=== PATIENT | female | born 1965 | race Caucasian/White ===

== ENCOUNTER → 2017-07-17 | Outpatient (CLI) | payer OTHER | END | disposition home or self-care (01) | LOC: CFH 14:09 | PROVIDERS: ATTEND Internal Medicine | DX: Z12.31 Encounter for screening mammogram for malignant neoplasm of breast (principal) | CPT/HCPCS: G0202 ==

== ENCOUNTER 2018-09-17 10:27 | Emergency (ER) | payer OTHER ==
[~2018-09-17] VITALS: Ht 185.4 cm; Wt 84.0 kg
[2018-09-17] MEDS ORDERED: PLEASE ENTER ALLERGIES MC SCH (11:00)
[2018-09-17] MEDS ORDERED: HYDROmorphone 2 MG/ML, 1ML IM ONE (11:00)
[2018-09-17] MEDS ORDERED: ONDANSETRON ODT 4 MG PO ONE (11:00)
[2018-09-17] MEDS ORDERED: HYDROmorphone 2 MG/ML, 1ML ONE (11:12)
[2018-09-17] MEDS ORDERED: ONDANSETRON 2MG/ML, 2ML ONE (11:12)
[2018-09-17 11:24] LABS: ALBUMIN 3.6 g/dL (3.4-5.0); ANION GAP 8 mmol/L (5-15); CALCIUM 8.1 mg/dL (8.5-10.1); CHLORIDE 109 mmol/L (98-107); CREATININE 0.63 mg/dL (0.55-1.02)
[2018-09-17 11:26] LABS: BASOPHILS # (AUTO) 0.01 x10^3/uL (0-0.1); BASOPHILS % (AUTO) 0 % (0-1); EOSINOPHILS # (AUTO) 0.15 x10^3/uL (0-0.4); EOSINOPHILS % (AUTO) 3 % (1-7); LYMPHOCYTES % (AUTO) 26 % (22-44); MD NO; MEAN CORPUSCULAR HEMOGLOBIN 31.6 pg (27.0-34.8); MEAN CORPUSCULAR HGB CONC 33.8 g/dL (32.4-35.8); MEAN CORPUSCULAR VOLUME 93.7 fL (80-100); MEAN PLATELET VOLUME 10.2 fL (7.4-10.4); MONOCYTES # (AUTO) 0.42 x10^3/uL (0.2-0.8); MONOCYTES % (AUTO) 7 % (2-9); NEUTROPHILS # (AUTO) 3.83 x10^3/uL (1.8-6.8); NEUTROPHILS % (AUTO) 65 % (42-75); PLATELET COUNT 223 x10^3/uL (130-400); RED BLOOD COUNT 3.95 x10^6/uL (3.82-5.3); RED CELL DISTRIBUTION WIDTH 13.9 % (9.6-15.2)
[2018-09-17] MEDS ORDERED: ONDANSETRON 2MG/ML, 2ML IVPush ONE (11:30)
[2018-09-17] MEDS ORDERED: HYDROmorphone 2 MG/ML, 1ML IVPush ONE (11:30)
[2018-09-17] MEDS ORDERED: BACITRACIN ZINC OINT 500U/GM, 0.9 GM ONE (12:38)
[2018-09-17 14:11] VITALS: BP 135/62
== END 2018-09-17 14:09 ==
LOC: ED 13:32
DX: S02.81XA Fracture of other specified skull and facial bones, right side, initial encounter for closed fracture (principal); S02.2XXA Fracture of nasal bones, initial encounter for closed fracture; V89.2XXA Person injured in unspecified motor-vehicle accident, traffic, initial encounter; Y93.89 Activity, other specified; Y92.89 Other specified places as the place of occurrence of the external cause; Y99.8 Other external cause status
CPT/HCPCS: 36415; 80048; 82040; 85025; 96374; 96375; 99284; J1170; J2405

== ENCOUNTER 2020-02-08 02:08 | Inpatient (IN) | payer OTHER ==
[~2020-02-08] VITALS: Ht 172.7 cm; Wt 91.5 kg
[2020-02-08] MEDS ORDERED: ATROPINE SYRINGE 0.1 MG/ML, 10ML ONE ×2 (02:27→02:29)
[2020-02-08] MEDS ORDERED: MAGNESIUM SULFATE PMX 2GM/50ML 0 ML ONE (02:27)
[2020-02-08] MEDS ORDERED: EPINEPHRINE SYRINGE 0.1 MG/ML, 10ML ONE (02:29)
[2020-02-08] MEDS ORDERED: MAGNESIUM SULFATE PMX 2GM/50ML 50 ML ONE (02:29)
[2020-02-08] MEDS ORDERED: SODIUM CHLORIDE 0.9% 1,000ML IVBOLUS ONE (02:30)
[2020-02-08] MEDS ORDERED: ATROPINE SYRINGE 0.1 MG/ML, 10ML IVPush ONE (02:30)
[2020-02-08] MEDS ORDERED: MAGNESIUM SULFATE PMX 2GM/50ML 50 ML IV ONE (02:30)
[2020-02-08 02:40] LABS: BASOPHILS # (AUTO) 0.02 x10^3/uL (0-0.1); BASOPHILS % (AUTO) 0 % (0-1); EOSINOPHILS # (AUTO) 0.11 x10^3/uL (0-0.4); EOSINOPHILS % (AUTO) 2 % (1-7); LYMPHOCYTES % (AUTO) 18 % (22-44); MD NO; MEAN CORPUSCULAR HEMOGLOBIN 31.2 pg (27.0-34.8); MEAN CORPUSCULAR HGB CONC 32.6 g/dL (32.4-35.8); MEAN CORPUSCULAR VOLUME 95.7 fL (80-100); MEAN PLATELET VOLUME 10.9 fL (7.4-10.4); MONOCYTES # (AUTO) 0.57 x10^3/uL (0.2-0.8); MONOCYTES % (AUTO) 9 % (2-9); NEUTROPHILS # (AUTO) 4.37 x10^3/uL (1.8-6.8); NEUTROPHILS % (AUTO) 71 % (42-75); PLATELET COUNT 190 x10^3/uL (130-400); RED BLOOD COUNT 4.38 x10^6/uL (3.82-5.3); RED CELL DISTRIBUTION WIDTH 15.1 % (9.6-15.2)
--- NOTE | 2020-02-08 02:50 | NUR ---
PT BECOMING INCREASINGLY MORE DROWSY. SPEECH SLURRED, INCOHERENT SPEECH PATTERN. ERP/RT AT BEDSIDE FOR INTUBATION. RSI RX ADMINISTERED PER ERP ORDER. INTUBATED WITH 8.0 ET TUBE, 25 AT THE LIP. PLACEMENT CONFIRMED BY COLOR CHANGE AND BILAT BREATH SOUNDS. CHEST XRAY ORDERED ERP AT BEDSIDE FOR CENTRAL LINE PLACEMENT.
[2020-02-08 02:53] LABS: ALANINE AMINOTRANSFERASE 27 U/L (12-78); ALBUMIN 3.1 g/dL (3.4-5.0); ANION GAP 10 mmol/L (5-15); CALCIUM 8.2 mg/dL (8.5-10.1); CHLORIDE 112 mmol/L (98-107); CREATININE 0.74 mg/dL (0.55-1.02)
[2020-02-08 02:58] LABS: ALKALINE PHOSPHATASE 66 U/L (45-117); BILIRUBIN,TOTAL 0.4 mg/dL (0.2-1.0); TOTAL PROTEIN 6.1 g/dL (6.4-8.2)
[2020-02-08 03:14] LABS: SALICYLATE LEVEL < 1.7 mg/dL (2.8-20.0)
[2020-02-08] MEDS: NOREPINEPHRINE 8 MG in SODIUM CHLORIDE 0.9% 242 ML IV PRN ×4 (03:30→22:40)
[2020-02-08 03:32] LABS: TROPONIN I 0.309 ng/mL (0.000-0.045)
[2020-02-08] MEDS ORDERED: MIDAZOLAM HCL 50 MG in SODIUM CHLORIDE 0.9% 40 ML IV PRN ×2 (03:40→04:08)
[2020-02-08] MEDS ORDERED: SODIUM CHLORIDE 0.9% 1,000 ML IV ONE (03:50)
--- NOTE | 2020-02-08 03:59 | NUR ---
LATE ENTRY: PT ARRIVED AT 0215 AFTER REPORTEDLY TAKING 90 4MG TAZANIDINE AND 5 "OTHER PILLS". PER EMS, PT CALLED FOR EMS ON HER OWN. PT STATES THAT THIS WAS AN INTENTIONAL OVERDOSE D/T "SO MUCH CHRONIC PAIN". HX OF SA BY OD. UPON ARRIVAL, PT AWAKE BUT DROWSY AND VERBALIZING NEEDS WITH MILDLY SLURRED SPEECH. BRADYCARDIC, HR 40'S AND HYPOTENSIVE. UPON ARRIVAL, VERBAL CONSENT OBTAINED FOR INTUBATION AND CENTRAL LINE. RECTAL TEMP UPON ARRIVAL INDICATES HYPOTHERMIA. BLANKETS, WARMER, AND FLUID WARMER IN USE. 0300: PT INTUBATED WO DIFFICULTY. CENTRAL LINE PLACED TO R IJ BY DR HARE. HATHAWAY IN PLACE. NG TUBE PLACED AND CONFIRMED WITH ASPIRATION OF GASTRIC CONTENT AND AUSCULTATION. MEDICATIONS TITRATED FOR EFFECT. UDS COLLECTED AND SENT TO LAB.
[2020-02-08 04:16] LABS: AMPHETAMINE SCREEN, URINE Negative (Negative); BARBITURATE SCREEN, URINE Negative (Negative); BENZODIAZEPINE SCREEN, URINE Negative (Negative); CANNABINOID SCREEN, URINE Negative (Negative); COCAINE SCREEN, URINE Negative (Negative); METHADONE SCREEN, URINE Negative (Negative); OPIATE SCREEN, URINE Negative (Negative)
[2020-02-08] MEDS ORDERED: DEXTROSE 4 GM TAB.CHEW PO PRN (04:30)
[2020-02-08] MEDS ORDERED: GLUCAGON 1 MG IM PRN (04:30)
[2020-02-08] MEDS ORDERED: BISACODYL 10 MG SUPP PR PRN (04:30)
[2020-02-08] MEDS ORDERED: DEXTROSE 50%, 50ML SYRINGE IVPush PRN (04:30)
[2020-02-08] MEDS ORDERED: PHARMACY MAY ADJ FOR RENAL FX MC SCH (04:30)
[2020-02-08] MEDS ORDERED: LIDOCAINE-MPF 1%, 2ML ENDO PRN (04:30)
[2020-02-08] MEDS ORDERED: LACTULOSE 20 GM/30 ML UDC NG PRN (04:30)
[2020-02-08] MEDS ORDERED: SENNA 176 MG/5 ML ORAL SOL NG PRN (04:30)
[2020-02-08] MEDS ORDERED: SENNA/DOCUSATE TABLET NG PRN (04:30)
[2020-02-08] MEDS ORDERED: MIDAZOLAM 1 MG/ML, 2ML IVPush PRN (04:30)
--- NOTE | 2020-02-08 04:31 | NUR ---
REPORT TO CEZAR YOUNG IN CCU. PT PREPARED FOR TRANSPORT
--- NOTE | 2020-02-08 04:41 | NUR ---
PT TRANSFERED TO CCU WITH RN, LALY AND RT. ANTONIO, RUSSELL, AND TERRY IN BELONGINGS BAG TO CCU WITH PT. CLOTHING HAD BEEN CUT OFF DURING CARE.
[2020-02-08] MEDS ORDERED: FENTANYL PF 100 MCG/2ML ONE (04:56)
[2020-02-08] MEDS: FENTANYL PF 100 MCG/2ML IVPush ONE ×2 (05:00→05:30)
[2020-02-08] MEDS: MIDAZOLAM 1 MG/ML, 5ML IVPush ONE ×2 (05:00→05:30)
[2020-02-08] MEDS: INSULIN LISPRO 100 UNITS/ML, PEN SQ-INSULIN SCH ×4 (07:00→21:00)
[2020-02-08] MEDS ORDERED: ETOMIDATE 20 MG/10 ML ONE (08:00)
[2020-02-08] MEDS ORDERED: MIDAZOLAM 1 MG/ML, 5ML ONE (08:00)
[2020-02-08] MEDS ORDERED: PROPOFOL 10 MG/ML, 100ML IV ONE (08:00)
[2020-02-08] MEDS ORDERED: SUCCINYLCHOLINE 20 MG/ML, 10ML ONE (08:00)
[2020-02-08 08:31] LABS: TROPONIN I 0.391 ng/mL (0.000-0.045)
[2020-02-08] MEDS ORDERED: SODIUM CHLORIDE 0.9% 1,000ML IV ONE (09:00)
[2020-02-08] MEDS ORDERED: PANTOPRAZOLE 40 MG IV IV SCH (09:00)
[2020-02-08] MEDS: SODIUM CHLORIDE FLUSH 10ML SYR IVF SCH ×2 (09:00→20:34)
[2020-02-08] MEDS: SODIUM CHLORIDE 0.9% 1,000 ML IV SCH ×3 (09:30→19:20)
[2020-02-08] MEDS ORDERED: SODIUM CHLORIDE 0.9% 1,000 ML IV SCH ×2 (10:00→18:30)
[2020-02-08] MEDS: FAMOTIDINE 20 MG/2 ML IV SCH ×2 (10:03→20:33)
[2020-02-08] MEDS: HEPARIN 5,000 UNITS/ML, 1ML SQ SCH ×3 (10:03→23:19)
[2020-02-08] MEDS: PLEASE ENTER HEIGHT AND WEIGHT MC SCH ×2 (11:00→14:42)
[2020-02-08 12:42] LABS: TROPONIN I 0.546 ng/mL (0.000-0.045)
[2020-02-08] MEDS ORDERED: ASPIRIN 81 MG TABLET CHEW PO ONE (13:30)
[2020-02-08 14:42] LABS: CHOL/HDL RATIO 2.9; LDL/HDL RATIO 1.5 (0.5-3.0)
[2020-02-08] MEDS: FENTANYL PF 100 MCG/2ML IVPush PRN ×3 (14:52→22:53)
[2020-02-08] MEDS: PROPOFOL 100 ML IV PRN (17:20)
[2020-02-08 20:12] LABS: TROPONIN I 0.414 ng/mL (0.000-0.045)
[2020-02-09] MEDS: SODIUM CHLORIDE 0.9% 1,000 ML IV SCH (01:14)
[2020-02-09] MEDS: PROPOFOL 100 ML IV PRN (01:16)
[2020-02-09] MEDS: FENTANYL PF 100 MCG/2ML IVPush PRN (02:32)
[2020-02-09] MEDS: NOREPINEPHRINE 8 MG in SODIUM CHLORIDE 0.9% 242 ML IV PRN ×2 (02:45→09:42)
[2020-02-09 04:00] VITALS: BP 97/50
[2020-02-09 04:24] LABS: MEAN CORPUSCULAR HEMOGLOBIN 31.3 pg (27.0-34.8); MEAN CORPUSCULAR HGB CONC 33.1 g/dL (32.4-35.8); MEAN CORPUSCULAR VOLUME 94.7 fL (80-100); MEAN PLATELET VOLUME 11.4 fL (7.4-10.4); PLATELET COUNT 215 x10^3/uL (130-400); RED BLOOD COUNT 3.75 x10^6/uL (3.82-5.3); RED CELL DISTRIBUTION WIDTH 15.3 % (9.6-15.2)
[2020-02-09 04:25] LABS: BASOPHILS % (AUTO) 0 % (0-1); EOSINOPHILS # (AUTO) 0.01 x10^3/uL (0-0.4); EOSINOPHILS % (AUTO) 0 % (1-7); LYMPHOCYTES # (AUTO) 1.92 x10^3/uL (1-3.4); LYMPHOCYTES % (AUTO) 18 % (22-44); MD NO; MONOCYTES # (AUTO) 1.21 x10^3/uL (0.2-0.8); MONOCYTES % (AUTO) 11 % (2-9); NEUTROPHILS # (AUTO) 7.61 x10^3/uL (1.8-6.8); NEUTROPHILS % (AUTO) 71 % (42-75)
[2020-02-09 04:28] LABS: ANION GAP 5 mmol/L (5-15); CALCIUM 7.7 mg/dL (8.5-10.1); CHLORIDE 119 mmol/L (98-107); CREATININE 0.85 mg/dL (0.55-1.02)
[2020-02-09 05:06] LABS: ALANINE AMINOTRANSFERASE 26 U/L (12-78); ALBUMIN 2.7 g/dL (3.4-5.0); ALKALINE PHOSPHATASE 63 U/L (45-117); BILIRUBIN, DIRECT 0.2 mg/dL (0.1-0.2); BILIRUBIN,INDIRECT 0.2 mg/dL (0.0-2.0); BILIRUBIN,TOTAL 0.4 mg/dL (0.2-1.0); TOTAL PROTEIN 5.5 g/dL (6.4-8.2)
[2020-02-09] MEDS: LACTATED RINGERS 1,000 ML IV SCH (06:53)
[2020-02-09] MEDS: INSULIN LISPRO 100 UNITS/ML, PEN SQ-INSULIN SCH ×4 (06:57→21:00)
[2020-02-09] MEDS: HEPARIN 5,000 UNITS/ML, 1ML SQ SCH ×2 (07:00→15:12)
[2020-02-09] MEDS: FAMOTIDINE 20 MG/2 ML IV SCH ×2 (09:22→22:02)
[2020-02-09] MEDS: ASPIRIN 81 MG TABLET CHEW PO SCH (09:23)
[2020-02-09] MEDS: SODIUM CHLORIDE FLUSH 10ML SYR IVF SCH ×2 (09:23→22:02)
[2020-02-09] MEDS: SODIUM CHLORIDE 0.9% 500 ML IV SCH ×2 (09:24→10:30)
[2020-02-09] MEDS ORDERED: POTASSIUM CHLORIDE 20 MEQ TAB.ER.PRT PO ONE (14:00)
[2020-02-09] MEDS ORDERED: ICN COSYNTROPIN 250 MCG in SYRINGE 1 EA IV ONE (15:00)
[2020-02-09] MEDS ORDERED: COSYNTROPIN 0.25 MG IVPush ONE (15:00)
[2020-02-09] MEDS ORDERED: BUTALB/APAP/CAFFEINE 50MG/325MG/40MG PO PRN (15:30)
[2020-02-10] MEDS: HEPARIN 5,000 UNITS/ML, 1ML SQ SCH ×3 (00:58→16:29)
[2020-02-10 04:57] LABS: ANION GAP 6 mmol/L (5-15); BASOPHILS # (AUTO) 0.02 x10^3/uL (0-0.1); BASOPHILS % (AUTO) 0 % (0-1); CALCIUM 8.2 mg/dL (8.5-10.1); CHLORIDE 115 mmol/L (98-107); CREATININE 0.58 mg/dL (0.55-1.02); EOSINOPHILS # (AUTO) 0.06 x10^3/uL (0-0.4); EOSINOPHILS % (AUTO) 1 % (1-7); LYMPHOCYTES # (AUTO) 2.08 x10^3/uL (1-3.4); LYMPHOCYTES % (AUTO) 33 % (22-44); MD NO; MEAN CORPUSCULAR HEMOGLOBIN 31.6 pg (27.0-34.8); MEAN CORPUSCULAR HGB CONC 33.4 g/dL (32.4-35.8); MEAN CORPUSCULAR VOLUME 94.5 fL (80-100); MEAN PLATELET VOLUME 10.6 fL (7.4-10.4); MONOCYTES # (AUTO) 0.54 x10^3/uL (0.2-0.8); MONOCYTES % (AUTO) 9 % (2-9); NEUTROPHILS # (AUTO) 3.54 x10^3/uL (1.8-6.8); NEUTROPHILS % (AUTO) 57 % (42-75); PLATELET COUNT 164 x10^3/uL (130-400); RED BLOOD COUNT 3.44 x10^6/uL (3.82-5.3); RED CELL DISTRIBUTION WIDTH 15.6 % (9.6-15.2)
[2020-02-10] MEDS ORDERED: POTASSIUM CHLORIDE 20 MEQ TAB.ER.PRT PO ONE (06:30)
[2020-02-10] MEDS: INSULIN LISPRO 100 UNITS/ML, PEN SQ-INSULIN SCH ×3 (06:55→16:29)
[2020-02-10] MEDS: LACTATED RINGERS 1,000 ML IV SCH (06:57)
[2020-02-10] MEDS: ASPIRIN 81 MG TABLET CHEW PO SCH (08:55)
[2020-02-10] MEDS: SODIUM CHLORIDE FLUSH 10ML SYR IVF SCH (08:55)
[2020-02-10] MEDS ORDERED: FLUTICASONE NASAL SPRAY 16GM NAS SCH (10:00)
[2020-02-10] MEDS ORDERED: DIPHENHYDRAMINE 50 MG/ML, 1ML IVPush ONE (10:00)
[2020-02-10] MEDS ORDERED: PROCHLORPERAZINE 5 MG/ML, 2ML IV ONE (10:00)
[2020-02-10 14:45] VITALS: BP 96/62
[2020-02-10] MEDS ORDERED: FLUT16SP24 NAS (16:39)
[2020-02-10] MEDS ORDERED: ASPI-515 PO (16:39)
[2020-02-10] MEDS ORDERED: BUTA-177 PO (16:39)
[2020-02-10] MEDS ORDERED: ATOR40TA78 PO (16:40)
== END 2020-02-10 18:35 | disposition home or self-care (01) | DRG 917 ==
LOC: ED 03:46 → CCU 05:14 → CSU 02-09 01:56 → 5SO 02-09 16:06
PROVIDERS: ADMIT Internal Medicine; ATTEND Hospitalist
PROC: 5A1935Z Respiratory Ventilation, Less than 24 Consecutive Hours (ICD-10-PCS; principal; 2020-02-08)
PROC: 0BH17EZ Insertion of Endotracheal Airway into Trachea, Via Natural or Artificial Opening (ICD-10-PCS; 2020-02-08)
PROC: 02HV33Z Insertion of Infusion Device into Superior Vena Cava, Percutaneous Approach (ICD-10-PCS; 2020-02-08)
PROC: B548ZZA Ultrasonography of Superior Vena Cava, Guidance (ICD-10-PCS; 2020-02-08)
DX: T42.8X2A Poisoning by antiparkinsonism drugs and other central muscle-tone depressants, intentional self-harm, initial encounter (principal); G92 Toxic encephalopathy; J96.01 Acute respiratory failure with hypoxia; I21.A1 Myocardial infarction type 2; I50.30 Unspecified diastolic (congestive) heart failure; Z99.11 Dependence on respirator [ventilator] status; E87.6 Hypokalemia; F32.9 Major depressive disorder, single episode, unspecified; G89.29 Other chronic pain; Z63.8 Other specified problems related to primary support group; Z91.5 Personal history of self-harm; Z88.8 Allergy status to other drugs, medicaments and biological substances; Y92.89 Other specified places as the place of occurrence of the external cause; I95.2 Hypotension due to drugs
CPT/HCPCS: 31500; 36415; 36556; 36600; 96374; 96375; 99291; J3490; 71045; 80048; 80053; 80061; 80076; 80307; 82533; 82803; 82962; 83735; 84443; 84478; 84484; 84703; 85025; 87070; 87081; 87205; 93005; 93306; 94002; 94003; G0378; J0461; J1644; J2250; J2704; J3010; J0330; J0780; J0834; J1200; J3475; J7030; J7040; J7050; J7120